=== PATIENT | female | born 1945 | race Caucasian/White ===

== ENCOUNTER 2020-05-04 20:59 | Emergency (ER) | payer MEDICARE, SELFPAY ==
[2020-05-04 21:19] VITALS: BP 155/92; PULSE 67; RESP 16; TEMP 36.2; O2SAT 92; BMI 29.2
--- NOTE | 2020-05-04 21:47 | CTR_ITS ---
PROCEDURE INFORMATION: Exam: CT Head Without Contrast Exam date and time: 05/04/2020 9:55 PM Age: 75 years old Clinical indication: Injury or trauma; Fall; Blunt trauma (contusions or hematomas); Additional info: Fall and hit head TECHNIQUE: Imaging protocol: Computed tomography of the head without contrast. Radiation optimization: All CT scans at this facility use at least one of these dose optimization techniques: automated exposure control; mA and/or kV adjustment per patient size (includes targeted exams where dose is matched to clinical indication); or iterative reconstruction. COMPARISON: No relevant prior studies available. RADIATION DOSE METRICS: Total DLP (mGy-cm): 794.36 FINDINGS: Brain: There is moderate cortical atrophy. Low-density changes in the white matter are consistent with nonspecific small vessel chronic ischemic change. There is no intracranial mass, hemorrhage or edema. Cerebral ventricles: No ventriculomegaly. Bones/joints: Unremarkable. No acute fracture. Paranasal sinuses: Visualized sinuses are unremarkable. No fluid levels. Mastoid air cells: Visualized mastoid air cells are well aerated. Soft tissues: There is scalp hematoma in the left frontal region and also overlying the left orbit. CT/CT head wo con* [id number] IMPRESSION: Scalp hematoma. No acute intracranial finding. Radiation Dose CTDIVOL = (mGy): DLP = 794.36 (mGy-cm)
--- NOTE | 2020-05-04 21:56 | ECG_ITS ---
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 Measurements Intervals Prentice Rate: 63 P: 83 CT: 156 QRS: 64 QRSD: 91 T: 77 QT: 380 QTc: 392 Interpretive Statements SINUS RHYTHM NONSPECIFIC T-WAVE ABNORMALITY No previous ECG available for comparison Electronically Signed On 05-05-2020 13:20:23 CDT by Yaya Vogel M.D. [id number]
--- NOTE | 2020-05-04 21:56 | CTR_ITS ---
PROCEDURE INFORMATION: Exam: CT Maxillofacial Without Contrast Exam date and time: 05/04/2020 10:00 PM Age: 75 years old Clinical indication: Injury or trauma; Fall; Blunt trauma (contusions or hematomas); Orbit/periorbital; Left; Prior surgery; Surgery type: Eyes TECHNIQUE: Imaging protocol: Computed tomography images of the face without contrast. Radiation optimization: All CT scans at this facility use at least one of these dose optimization techniques: automated exposure control; mA and/or kV adjustment per patient size (includes targeted exams where dose is matched to clinical indication); or iterative reconstruction. COMPARISON: No relevant prior studies available. RADIATION DOSE METRICS: Total DLP (mGy-cm): 763.23 FINDINGS: Orbital cavity: Left orbital contents are intact. No abnormality is seen in the left globe. Bones/joints: There is fracture of the left nasal bone which is slightly depressed. There is some deformity of the posterior aspect of the medial wall of the left orbit which may represent minimal medial wall blowout fracture. There is minimally displaced blowout fracture of the inferior wall of the left orbit with some herniation of fat through the orbital defect. Paranasal sinuses: There is partial opacification of some ethmoid air cells on the left. There is some blood or fluid within the left maxillary antrum. Soft tissues: There is some soft tissue swelling and hematoma overlying the left orbit and in the left frontal scalp. Dental: This patient has no teeth. CT/CT facial bones wo con* [id number] IMPRESSION: 1. Left nasal bone fracture. 2. Blowout type fractures of the medial wall and floor of the left orbit. Radiation Dose CTDIVOL = (mGy): DLP = 763.23 (mGy-cm)
--- NOTE | 2020-05-04 22:07 | W.ED.HEATRA ---
HPI - Head Injury General: Chief complaint: Head Injury Stated complaint: FALL - RECENT EYE SURGERY Time Seen by Provider: 05/04/20 21:48 History of Present Illness: HPI Narrative: This patient is a 75-year-old female who presents today after a fall at home. She thinks she passed out and may have fallen down some stairs. She had gone home about an hour before her and when he came home he found her in bed asleep. She does not really remember what happened exactly and she does think she probably passed out. She has bruising and swelling around her left eye. She is very concerned about that because she had a cataract surgery on that eye on April 14. She also had cataract surgery on the right eye on April 28. The left eye is swollen shut but when I open the lid she is able to see out of it. She denies any other injury. She has a small abrasion on her left elbow but denies any pain with range of motion or palpation. She does admit to having 3 beers and a sleeping pill tonight. MD Complaint: head injury and fall Onset (ago): hour(s) (3) Mechanism of Injury: fall Place: home Loss of Consciousness: yes and unwitnessed Location of injury: face Severity: moderate Quality: aching Radiation: none Other Injuries: none Associated symptoms: Deny nausea, neck pain or vomiting Review of Systems General: Reports: 10 or more systems reviewed and unremarkable except in HPI and below Const: Denies: fever(s), chills, fatigue or malaise Eyes: Denies: change in vision ENMT: Denies: odynophagia Card: Denies: chest pain or swelling of feet/ankles Resp: Denies: dyspnea, productive cough or non-productive cough GI: Denies: abdominal pain, nausea or vomiting : Denies: flank pain or difficulty voiding Musc: Denies: neck pain or back pain Skin/Breast: Denies: rash Neuro: Denies: headache(s), numbness in extremities or weakness in extremities Edi/Lymph: Denies: easy bruising or easy bleeding Physical Exam Const: COMMON NORMALS: no acute distress, patient oriented x3, no limitations and alert GENERAL APPEARANCE: cooperative and comfortable HENMT: HEAD & SCALP: normal to inspection FACE & SINUS: normal facial exam Eye: GENERAL EYE: other (Marked swelling around the left eye particular of the upper lid. I was able to open the eye and the eye itself appears normal but with a limited exam. There is abrasions and swelling over the forehead and on the zygomatic arch as well. small amount of dried blood in the nose) Neck/C-Spine: COMMON NORMALS: supple, no meningeal signs and no JVD Chest: COMMONS NORMALS: normal inspection of the chest Resp: COMMON NORMALS: normal respiratory effort, No use of accessory muscles and clear to auscultation bilaterally AUSCULTATION: clear to auscultation bilaterally Cardio: COMMON NORMALS: no JVD, regular rate, regular rhythm and No murmurs present (Cardio) RATE: regular rate RHYTHM: regular rhythm GI: COMMON NORMALS: Normal to inspection, nondistended, normoactive bowel sounds present, Soft to palpation and non-tender INSPECTION: Yes normal to inspection AUSCULTATION: Yes normoactive bowel sounds PALPATION: Yes Soft to palpation Back/Pelvis: COMMON NORMALS: thoracic and lumbar spine normal to inspection Extremity: COMMON NORMALS: normal to inspection NARRATIVE EXTREMITY EXAM: Small abrasion to the left elbow Neuro: COMMON NORMALS: patient oriented x3, moves all extremities, no focal motor deficits and no sensory deficits noted SENSORIUM/ORIENTATION: Yes alert MENINGEAL SIGNS: Yes no meningeal signs Psych: COMMON NORMALS: mental status grossly normal, cooperative and normal affect Skin: COMMON NORMALS: no rashes or lesions noted and turgor normal GENERAL SKIN EXAM: no rashes or lesions noted and turgor normal Course ED course: Patient has marked swelling over the left eye. She is concerned about her recent cataract surgery. Although the exam is limited her eye itself appears to be okay. She does have a orbital blowout fracture and appears to have a little bit of fat entrapped but as far as I can tell does not have any entrapment of orbital muscles. She will call Dr. Acosta in the morning to get follow-up and better exam of her eye. I gave her some pain medicine and strongly counseled her not to take it with alcohol or sleeping pills. Vital Signs: Vital signs: Vital Signs Temperature 97.2 F L 05/04/20 21:19 Pulse Rate 67 05/04/20 21:19 Respiratory Rate 17 05/04/20 23:23 Blood Pressure 155/92 05/04/20 21:19 Pulse Oximetry 98 05/04/20 23:23 MDM - Head Injury Lab Data: Labs: Lab Results 05/04/20 05/04/20 05/04/20 Range/Units 22:18 22:18 22:18 WBC 10.0 (4.0-10.0) 10^3/ uL RBC 4.08 L (4.1-5.3) 10^6/u L Hgb 12.5 (11.5-15.3) g/dL Hct 38.9 (37.0-47.0) % MCV 95.3 (81-99) fL MCH 30.6 (28.0-34.0) pg MCHC 32.1 (30.0-36.0) g/dL RDW 12.6 (12.1-15.1) % Plt Count 221 (130-400) 10^3/c mm MPV 10.6 H (7.4-10.4) fL Neut % (Auto) 79.6 % Lymph % (Auto) 14.2 % Clay % (Auto) 5.1 % Eos % (Auto) 0.3 % Baso % (Auto) 0.4 % Neut # (Auto) 7.95 H (1.8-7.7) 10^3/u L Lymph # (Auto) 1.4 (0.8-4.8) 10^3/u L Clay # (Auto) 0.5 (0.2-0.9) 10^3/u L Eos # (Auto) 0.0 (0.0-0.8) 10^3/u L Baso # (Auto) 0.0 (0.0-0.1) 10^3/u L Nucleated RBC % (a uto) 0 % Nucleated RBCs # 0.0 /100WBC PT 12.10 (12.1-14.9) SECO NDS INR 0.87 (0.8-1.2) Sodium 137 (136-145) mmol/L Potassium 4.3 (3.5-5.1) mmol/L Chloride 104 (98-107) mmol/L Carbon Dioxide 20 L (22-29) mmol/L Anion Gap 17.3 (5-19) BUN 16 (8-23) mg/dL Creatinine 0.8 (0.5-0.9) mg/dL GFR Calculation Not Reportable Glucose 144 H (65-115) mg/dL Calculated Osmolal ity 288 (285-295) mOsm/k g Calcium 8.9 (8.5-10.5) mg/dL Total Bilirubin 0.2 (0.15-1.2) mg/dL AST 22 (0-32) U/L ALT 14 (0-33) U/L Alkaline Phosphata se 51 (35-105) IU/L Total Protein 7.1 (6.6-8.7) g/dL Albumin 4.2 (3.5-5.2) g/dL Globulin 2.9 (1.3-4.6) g/dL Discharge Plan Discharge Patient Disposition: Home Clinical Impression: Orbital fracture Qualifiers: Encounter type: initial encounter Fracture type: closed Qualified Code(s): S02.85XA - Fracture of orbit, unspecified, initial encounter for closed fracture Closed fracture nasal bone Qualifiers: Encounter type: initial encounter Qualified Code(s): S02.2XXA - Fracture of nasal bones, initial encounter for closed fracture Condition: Stable Prescriptions: New cephalexin 500 mg capsule 500 mg PO TID 7 Days Qty: 21 RF: 0 oxycodone 5 mg tablet 5 mg PO Q6H PRN (Reason: pain) Qty: 10 RF: 0 Discharge Orders: Discharge Order (Routine); Ordered 05/04/20 Ordered By: Brisa Lopez Referrals: Gunner Acosta MD [Physician] - 1-3 days (Recheck recent cataract surgery, left orbital fracture) Vernon Yeh MD [Family Provider] - Discharge Diet: Usual diet Discharge Activity: Limit activity as instructed Patient Instructions: Facial Fracture (ED) Activity Restrictions/Additional Instructions: Rest. Be cautious about mixing pain medicine, sleeping pills and alcohol. Return to the ER if any new or worse symptoms. Call Dr. Acosta in the morning to arrange for close follow-up. Discharge Date/Time: 05/04/20 23:24 Coding Level of Care Code ED Inventory Management Specialist for Chg Fwd Exam Comprehensive
[2020-05-04 22:27] LABS: Basophils % 0.4 %; Eosinophils % 0.3 %; Hematocrit 38.9 % (37.0-47.0); Hemoglobin 12.5 g/dL (11.5-15.3); Lymphocytes # 1.4 10^3/uL (0.8-4.8); Lymphocytes % 14.2 %; Mean Corpuscular HGB Conc 32.1 g/dL (30.0-36.0); Mean Corpuscular Hemoglobin 30.6 pg (28.0-34.0); Mean Corpuscular Volume 95.3 fL (81-99); Mean Platelet Volume 10.6 fL (7.4-10.4); Monocytes # 0.5 10^3/uL (0.2-0.9); Monocytes % 5.1 %; Neutrophils # 7.95 10^3/uL (1.8-7.7); Neutrophils % 79.6 %; Nucleated Red Blood Cells % 0 %; Platelet Count 221 10^3/cmm (130-400); Red Blood Count 4.08 10^6/uL (4.1-5.3); Red Cell Distribution Width 12.6 % (12.1-15.1)
[2020-05-04 22:44] LABS: INR 0.87 (0.8-1.2)
[2020-05-04 22:48] LABS: Alanine Aminotransferase 14 U/L (0-33); Albumin Level 4.2 g/dL (3.5-5.2); Alkaline Phosphatase 51 IU/L (35-105); Anion Gap 17.3 (5-19); Aspartate Amino Transferase 22 U/L (0-32); Blood Urea Nitrogen 16 mg/dL (8-23); Calcium 8.9 mg/dL (8.5-10.5); Carbon Dioxide 20 mmol/L (22-29); Chloride 104 mmol/L (98-107); Globulin 2.9 g/dL (1.3-4.6); Glucose 144 mg/dL (65-115); Osmolality Calculated 288 mOsm/kg (285-295); Potassium 4.3 mmol/L (3.5-5.1); Sodium 137 mmol/L (136-145); Total Bilirubin 0.2 mg/dL (0.15-1.2); Total Protein 7.1 g/dL (6.6-8.7)
[2020-05-04 22:49] VITALS: RESP 16; O2SAT 97
[2020-05-04] MEDS: morphine 4 mg/mL SDV 1 mL IVP (22:49)
[2020-05-04] MEDS: ondansetron 2 mg/ML SDV 2 mL 4 MG IVP (22:50)
[2020-05-04 23:23] VITALS: RESP 17; O2SAT 98
== END 2020-05-04 23:24 | disposition home or self-care (01) ==
PROVIDERS: Emergency Provider Emergency Medicine; Family Provider Family Medicine
DX: S02.85XA Fracture of orbit, unspecified, initial encounter for closed fracture (principal); S02.2XXA Fracture of nasal bones, initial encounter for closed fracture; W19.XXXA Unspecified fall, initial encounter
CPT/HCPCS: 12345; 70450; 70486; 80053; 85025; 85610; 93005; 96374; 96375; 99283; J2270; J2405

== ENCOUNTER 2020-12-02 07:14 | Outpatient (RCR) | payer MEDICARE, SELFPAY | END 2020-12-21 23:59 | disposition home or self-care (01) | LOC: SPT 07:14 | PROVIDERS: PCP Family Medicine; Referring Provider Family Medicine; Visit Provider Family Medicine | DX: M25.552 Pain in left hip (principal) | CPT/HCPCS: 97110; 97161 ==

== ENCOUNTER 2020-12-22 06:00 | Outpatient (RCR) | payer MEDICARE, SELFPAY | END 2021-01-20 23:59 | disposition home or self-care (01) | LOC: SPT 06:00 | PROVIDERS: PCP Family Medicine; Referring Provider Family Medicine; Visit Provider Family Medicine | DX: M25.552 Pain in left hip (principal) | CPT/HCPCS: 97110 ==

== ENCOUNTER 2021-01-21 06:00 | Outpatient (RCR) | payer MEDICARE, SELFPAY | END 2021-02-20 23:59 | disposition home or self-care (01) | LOC: SPT 06:00 | PROVIDERS: PCP Family Medicine; Referring Provider Family Medicine; Visit Provider Family Medicine | DX: M25.552 Pain in left hip (principal) | CPT/HCPCS: 97110 ==

== ENCOUNTER → 2022-11-10 09:40 | Outpatient (BNVA) | payer MEDICARE, SELFPAY | PROVIDERS: PCP Family Medicine; Visit Provider Family Medicine | DX: R68.83 Chills (without fever) (principal); F10.20 Alcohol dependence, uncomplicated | CPT/HCPCS: 80053; 82607; 83735; 84443; 85025 ==

== ENCOUNTER → 2023-07-19 09:33 | Outpatient (BNVA) | payer MEDICARE, SELFPAY | PROVIDERS: PCP Family Medicine; Visit Provider Clinical Nurse Specialist Adult Health | DX: E03.9 Hypothyroidism, unspecified (principal); L30.9 Dermatitis, unspecified; R21 Rash and other nonspecific skin eruption | CPT/HCPCS: 80053; 82306; 84443; 85025 ==

== ENCOUNTER 2023-11-03 08:54 | Outpatient (CLI) | payer MEDICARE, SELFPAY ==
--- NOTE | 2023-11-03 09:30 | MM_ITS ---
WS: [id number] Bilateral screening 3D tomosynthesis digital mammogram, 11/03/2023 Clinical Data: screening Comparison: 07/26/2011, 06/24/2010, 04/16/2009, 03/04/2008, 12/06/2006, 11/22/2005. Findings: The breast parenchymal pattern shows fibroglandular tissue. No spiculated masses or clustered calcifi cations are seen. There are no secondary signs of carcinoma. The nodule in the central portion of the right breast has decreased in size and now measures 0.8 cm and has decreased density. Based on previ ous reports this nodule probably represents a resolving hematoma. There are vascular calcifications i n the right breast. The left breast is normal. Impression: 1. Negative bilateral mammogram with decrease in size and density of right breast nodule.. 2. Recommend annual screening mammograms. MM/[place] [id number] BIRADS: 2-Benign FOLLOW UP: 1 Year Follow-up The CAD aircraft delivery checker was used.
== END 2023-11-03 08:55 | disposition home or self-care (01) ==
LOC: RAD 08:55
PROVIDERS: PCP Family Medicine; Visit Provider Family Medicine
DX: Z12.31 Encounter for screening mammogram for malignant neoplasm of breast (principal)
CPT/HCPCS: 77063; 77067

== ENCOUNTER 2024-02-16 06:35 | Emergency (ER) | payer MEDICARE, SELFPAY ==
[2024-02-16 06:36] VITALS: BP 188/102; PULSE 62; RESP 18; TEMP 36.7; O2SAT 98; BMI 21.2
--- NOTE | 2024-02-16 06:49 | ED_ITS ---
HPI - Eye Problem General: Chief complaint: Eye Problems Stated complaint: Right eye trouble Time Seen by Provider: 02/16/24 06:39 History of Present Illness: 78-year-old female presents emergency ro om complaining of intermittent visual disturbance in her right eye. She had similar symptoms yesterday discharge to go to philippe oLwe's office he was not available and she was referred to urgent care urgent care referred her to Dr. Acosta's office. She was seen at Dr. Acosta's office there was no significant finding today per her report. She states she was intermittently having blurring in her vision and what she described as black dots. She states when she woke up this morning she had very restricted almost tunnellike vision. This subsequently resolved she describes it now as patchy blurry vision throughout her field of vision. She has no floaters she has no eye pain. No trauma to the eye recently. No redness or drainage from the eye. Her blood pressure is noted to be elevated today. He is also complaining of some posterior right-sided neck pain. No recent falls or trauma. No other neurologic deficits are noted on exam see below. Note that her blood pressure is elevated today. Associated symptoms: Denies fever(s) or headache(s) Review of Systems Const: Denies: fever(s) or chills Card: Denies: chest pain Resp: Denies: dyspnea GI: Denies: abdominal pain : Denies: dysuria, urinary frequency or urinary urgency Musc: Denies: back pain Skin/Breast: Denies: rash Neuro: Denies: headache(s), numbness in extremities or weakness in extremities PFS ED PFSH: Medical History Insomnia Hypothyroidism (acquired) Alcoholism History of gastric ulcer Surgical History Status post colonoscopy History of hysterectomy Social History Smoking and tobacco/nicotine status: unknown if used tobacco/nicotine Physical Exam Const: COMMON NORMALS: no acute distress GENERAL APPEARANCE: cooperative and comfortable ORIENTATION/CONSCIOUSNESS: Yes awake, Yes oriented to person, Yes oriented to place and Yes oriented to time HENMT: COMMON NORMALS: normocephalic, atraumatic and hearing grossly normal bilaterally HEAD & SCALP: normocephalic and atraumatic Eye: OTHER: Pupils equal reactive to light and accommodation. Funduscopic exam limited but appears normal vessels crisp no evidence of AV nicking and no evidence of retinal hemorrhage. Funduscopic exam was nondilated and somewhat limited. Resp: COMMON NORMALS: normal respiratory effort, No retractions, No use of accessory muscles and clear to auscultation bilaterally AUSCULTATION: clear to auscultation bilaterally Cardio: COMMON NORMALS: regular rate, regular rhythm and No murmurs present (Cardio) RATE: regular rate RHYTHM: regular rhythm Extremity: COMMON NORMALS: normal to inspection, capillary refill normal, no clubbing, cyanosis or edema, no calf tenderness and no pedal edema Neuro: SENSORIUM/ORIENTATION: Yes oriented to person, Yes oriented to place and Yes oriented to time OTHER: No ataxia no facial asymmetry no unilateral weakness. Skin: COMMON NORMALS: no rashes or lesions noted GENERAL SKIN EXAM: no rashes or lesions noted Course Vital Signs: Vital signs: Vital Signs Temperature 98.1 F 02/16/24 06:36 Pulse Rate 62 02/16/24 06:36 Respiratory Rate 18 02/16/24 06:36 Blood Pressure 188/102 02/16/24 06:36 Pulse Oximetry 98 02/16/24 06:36 Oxygen Delivery Me thod Room Air 02/16/24 06:36 MDM - Eye Problem Medical Decision Making No acute finding at this time. Initial blood pressure 188/102 repeat 158/82. Do not believe this is related to her blood pressure there is no sign of acute neurologic event. Based on her presentation of symptoms and no evidence of trauma no evidence of acute glaucoma. There is no redness or erythema to the eye no report of foreign body sensation. Given her normal exam and ophthalmology yesterday did not do a dilated eye exam. I think at this point probably better to send her back to ophthalmology for more complete exam and reevaluation. Given the transient intermittent nature of this do not believe she has a vascular occlusion. Her vision is blurry of the portions but is otherwise resolved. Medical Records I reviewed the patient's medical records. No radiology studies performed this visit Discharge Plan Discharge Patient Disposition: Home Clinical Impression: Transient vision disturbance, right Condition: Stable Prescriptions: No Action mupirocin 2 % ointment 1 applic topical BID Qty: 15 1RF Rx Instructions: for 7 days triamcinolone acetonide 0.1 % cream 1 applic topical DAILY Qty: 30 0RF Rx Instructions: use daily for up to 14 days levothyroxine 50 mcg capsule 50 mcg PO DAILY Qty: 30 11RF Rx Instructions: 30 mins prior to food or meds triamcinolone acetonide 0.5 % cream 1 applic topical BID Qty: 30 2RF propranolol 10 mg tablet 10 mg PO BID Qty: 60 11RF hydroxyzine pamoate [Vistaril] 25 mg capsule 25 mg PO BID Qty: 60 11RF omeprazole 20 mg capsule,delayed release(DR/EC) See Rx Instructions .ROUTE .COMPLEX Qty: 60 11RF Dose Instruction: TAKE 1 CAPSULE BY MOUTH TWO TIMES DAILY Rx Instructions: TAKE 1 CAPSULE BY MOUTH TWO TIMES DAILY zolpidem 10 mg tablet 10 mg PO BEDTIME PRN (Reason: insomnia) Qty: 30 5RF Discharge Orders: Discharge ED (Routine); Ordered 02/16/24 Ordered By: Roque Collier Referrals: Vernon Yeh MD [Primary Care Provider] - Discharge Diet: Usual diet Discharge Activity: Resume usual activity Patient Instructions: Opioid Safety, Pain Management Activity Restrictions/Additional Instructions: Thank you for choosing [facility] for your healthcare needs today. It is very important that you follow up as instructed or that you return to the Emerg ency Department should you have concerns or if your condition changes or worsens in any way. Recommend that you contact Dr. Acosta's office this morning and have them reexamine. Time you are examined in the emergency room there is no acute condition noted. It would be best to have further exam by ophthalmology this morning. Coding Level of Care Code ED Film Masker for Jeremiah Mckee
== END 2024-02-16 07:16 | disposition home or self-care (01) ==
PROVIDERS: Emergency Provider Family Medicine; PCP Family Medicine
DX: H53.8 Other visual disturbances (principal)
CPT/HCPCS: 99281

== ENCOUNTER 2024-02-16 09:41 | Emergency (ER) | payer MEDICARE, SELFPAY ==
--- NOTE | 2024-02-16 09:53 | W.ED.EYEPROB ---
HPI - Eye Problem General: Stated complaint: right eye trouble Time Seen by Provider: 02/16/24 09:43 PFSH ED PFSH: Medical History Insomnia Hypothyroidism (acquired) Alcoholism History of gastric ulcer Surgical History Status post colonoscopy History of hysterectomy Social History Smoking and tobacco/nicotine status: unknown if used tobacco/nicotine Discharge Plan Discharge Condition: Stable Prescriptions: No Action mupirocin 2 % ointment 1 applic topical BID Qty: 15 1RF Rx Instructions: for 7 days triamcinolone acetonide 0.1 % cream 1 applic topical DAILY Qty: 30 0RF Rx Instructions: use daily for up to 14 days levothyroxine 50 mcg capsule 50 mcg PO DAILY Qty: 30 11RF Rx Instructions: 30 mins prior to food or meds triamcinolone acetonide 0.5 % cream 1 applic topical BID Qty: 30 2RF propranolol 10 mg tablet 10 mg PO BID Qty: 60 11RF hydroxyzine pamoate [Vistaril] 25 mg capsule 25 mg PO BID Qty: 60 11RF omeprazole 20 mg capsule,delayed release(DR/EC) See Rx Instructions .ROUTE .COMPLEX Qty: 60 11RF Dose Instruction: TAKE 1 CAPSULE BY MOUTH TWO TIMES DAILY Rx Instructions: TAKE 1 CAPSULE BY MOUTH TWO TIMES DAILY zolpidem 10 mg tablet 10 mg PO BEDTIME PRN (Reason: insomnia) Qty: 30 5RF Referrals: Vernon Yeh MD [Primary Care Provider] - Coding Level of Care Code ED Overhead Crane Operator for Israg Rafi
--- NOTE | 2024-02-16 09:57 | CT_ITS ---
WS: [id number] CT ANGIOGRAM CEREBRAL AND CAROTID ARTERIES HISTORY: vision changes TECHNIQUE: CT angiogram is performed of the carotid and cerebral arteries. During arterial injection imaging is obtained from the skull vertex to the aortic arch in 1.25 mm imaging. Coronal and sagittal reformats are submitted. Additional multi planar reformats of the carotid and cerebral arteries are submitted, MIP imaging also reviewed. NASCET criteria utilized. [facility] CT [facility] at least one of these dose optimization techniques: automated exposure control; mA and/or kV adjust ment per patient size (includes targeted exams where dose is matched to clinical indication); or iter ative reconstruction. CONTRAST: Omnipaque 350; 100 mL IV. DLP: 957.79 mGy.cm COMPARISON: CT head 05/04/[address] of the brain has first been performed. There is mild bilateral volume loss. No hemorrh age or area of acute edema. There are a few small lacunar infarcts and moderate small vessel ischemic disease. Mild volume loss in the cerebellum. Carotid Angiogram: Right carotid: Common carotid artery: Arises normally from the innominate artery. No significant plaque or stenosis. Internal carotid artery: Small amount of plaque at the bifurcation. No high-grade stenosis. External carotid artery: Patent. Left carotid: Common carotid artery: Arises at the base of the innominate. No stenosis. Mild plaque. Internal carotid artery: Mild plaque at the bifurcation. No high-grade stenosis. External carotid artery: Patent. Right vertebral artery: Unremarkable. Left vertebral artery: Unremarkable. Arises normally from the subclavian artery. Subclavian arteries: No stenosis or significant abnormality. Upper thorax: Normal. Thyroid gland: Normal. Osseous structures: Slight retrolisthesis C4. CEREBRAL ANGIOGRAM: Intracranial vertebral arteries: Normal with no significant atherosclerosis. Basilar artery: No significant stenosis or occlusion. No aneurysm. Intracranial Internal carotid arteries: Moderate plaques in the cavernous carotid arteries with steno sis approaching 50%. No occlusions. Middle cerebral arteries: Normal. Anterior cerebral arteries and ACOM: Normal. Posterior cerebral arteries and PCOM's: Normal. Dural venous sinuses are normally enhancing. Mastoid air cells: Normal. Paranasal sinuses: Normal. Calvarium: Normal. CT/CT angio headneck* [id number] IMPRESSION: 1. No high-grade cervical carotid artery stenosis. Mild plaque in the cervical carotid arteries. 2. Moderate plaque in the cavernous carotid artery with stenosis near 50%, shaun ateral. No occlusion. 3. No occlusions or high-grade stenosis or aneurysm in the [place]. 4. No intracranial hemorrhage or edema. Mild cerebral atrophy with small vesse l ischemic disease.
[2024-02-16 09:58] VITALS: BP 165/109; PULSE 50; RESP 17; TEMP 36.8; O2SAT 98; BMI 22.6
[2024-02-16 10:17] LABS: Basophils % 0.4 %; Eosinophils # 0.1 10^3/uL (0.0-0.8); Eosinophils % 1.2 %; Hematocrit 39.6 % (36-47); Lymphocytes # 2.1 10^3/uL (0.8-4.8); Lymphocytes % 31.4 %; Mean Corpuscular HGB Conc 32.3 g/dL (30-55); Mean Corpuscular Hemoglobin 29.3 pg (27-33); Mean Corpuscular Volume 90.6 fl (85-98); Monocytes # 0.5 10^3/uL (0.2-0.9); Monocytes % 6.6 %; Neutrophils # 4.09 10^3/uL (1.8-7.7); Neutrophils % 60.1 %; Nucleated Red Blood Cells % 0 %; Platelet Count 209 10^3/cmm (157-399); Red Blood Count 4.37 10^6/uL (3.85-5.65); Red Cell Distribution Width 14.3 % (12.1-15.1); White Blood Count 6.81 10^3/uL (3.29-11.43)
[2024-02-16 10:28] LABS: Erythrocyte Sedimentation Rate 3 mm/hr (0-15)
[2024-02-16 10:36] LABS: Alanine Aminotransferase 13 U/L (0-33); Albumin Level 4.3 g/dL (3.5-5.2); Alkaline Phosphatase 55 U/L (35-105); Anion Gap 16.1 (5-19); Aspartate Amino Transferase 18 U/L (0-32); Blood Urea Nitrogen 12 mg/dL (8-23); Calcium 9.3 mg/dL (8.5-10.5); Carbon Dioxide 24 mmol/L (22-29); Chloride 104 mmol/L (98-107); Creatinine Clr Calc Pharmacy 49.6381; Globulin 3.3 g/dL (1.3-4.6); Glucose 118 mg/dL (65-115); Osmolality Calculated 291 mOsm/kg (285-295); Potassium 4.1 mmol/L (3.5-5.1); Sodium 140 mmol/L (136-145); Total Bilirubin 0.6 mg/dL (0.15-1.2); Total Protein 7.6 g/dL (6.6-8.7)
[2024-02-16] MEDS: iohexol 350 mg/mL 500 mL Btl (per mL) IV (10:54)
--- NOTE | 2024-02-16 10:57 | ED_ITS ---
HPI - Eye Problem 2 General: Chief complaint: Eye Problems Stated complaint: right eye trouble Time Seen by Provider: 02/16/24 09:43 History of Present Illness: 78-year-old female returns emergency crescencio m and seen earlier this morning she was 24 hours and from complaint of vision changes she had seen ophthalmology yesterday morning. We referred her back to ophthalmology she did not have accelerated blood pressure at the time. She had states her vision had dimmed out when she woke up this morning but had improved and was back to what it was like yesterday with areas that were blurry but generally she could see in that eye. When she went to the [employer] hand there is stating that she has loss of vision again she has no other focal neurologic deficits when she represents nor did she earlier in the day. Associated symptoms: Denies fever(s) or headache(s) Review of Systems 2 Const: Denies: fever(s) or chills Card: Denies: chest pain Resp: Denies: dyspnea GI: Denies: abdominal pain : Denies: dysuria, urinary frequency or urinary urgency Musc: Denies: back pain Skin/Breast: Denies: rash Neuro: Denies: headache(s), numbness in extremities or weakness in extremities PFSH ED 2 PFSH: Medical History Insomnia Hypothyroidism (acquired) Alcoholism History of gastric ulcer Surgical History Status post colonoscopy History of hysterectomy Social History Smoking and tobacco/nicotine status: unknown if used tobacco/nicotine Physical Exam 2 Const: COMMON NORMALS: no acute distress GENERAL APPEARANCE: cooperative and comfortable ORIENTATION/CONSCIOUSNESS: Yes awake, Yes oriented to person, Yes oriented to place and Yes oriented to time HENMT: COMMON NORMALS: normocephalic, atraumatic and hearing grossly normal bilaterally HEAD & SCALP: normocephalic and atraumatic Eye: OTHER: Pupils equal reactive to light and accommodation. Patient has irregular visual field disturbance. She describes it differently than previous visit. Resp: COMMON NORMALS: normal respiratory effort, No retractions, No use of accessory muscles and clear to auscultation bilaterally AUSCULTATION: clear to auscultation bilaterally Cardio: COMMON NORMALS: regular rate, regular rhythm and No murmurs present (Cardio) RATE: regular rate RHYTHM: regular rhythm Extremity: COMMON NORMALS: normal to inspection, capillary refill normal, no clubbing, cyanosis or edema, no calf tenderness and no pedal edema Neuro: SENSORIUM/ORIENTATION: Yes oriented to person, Yes oriented to place and Yes oriented to time OTHER: No ataxia no facial asymmetry no unilateral weakness. Skin: COMMON NORMALS: no rashes or lesions noted GENERAL SKIN EXAM: no rashes or lesions noted Course 2 Vital Signs: Vital signs: Vital Signs Temperature 98.2 F 02/16/24 09:58 Pulse Rate 50 L 02/16/24 09:58 Respiratory Rate 17 02/16/24 09:58 Blood Pressure 165/109 02/16/24 09:58 Pulse Oximetry 98 02/16/24 09:58 MDM - Eye Problem Medical Decision Making Symptoms onset greater than 30 hours ago. Possible this is a retinal artery branch occlusion she was evaluated yesterday at ophthalmology who did not think to do fluid as she likely timeframe. She was sent back here because of concerns for other neurologic's events but there is nothing immediately apparent she has no focal neurologic deficits at this time. CTA of the head and neck was done did not show any occlusive disease. Will discharge patient home on clopidogrel and atorvastatin had also recommended aspirin but she listed as an allergy giving headaches. Follow-up with her primary care doctor. She does not have any temporal artery tenderness her sed rate and her CRP are negative. Lab Data I reviewed the patient's lab results. 02/16/24 10:11 02/16/24 10:11 Radiology Impressions Head/Neck CTA 02/16/24 09:57 IMPRESSION: 1. No high-grade cervical carotid artery stenosis. Mild plaque in the cervical carotid arteries. 2. Moderate plaque in the cavernous carotid artery with stenosis near 50%, bilateral. No occlusion. 3. No occlusions or high-grade stenosis or aneurysm in the [place]. 4. No intracranial hemorrhage or edema. Mild cerebral atrophy with small vessel ischemic disease. Laboratory Results WBC 6.81 10^3/uL (3.29-11.43) 02/16/24 10:11 RBC 4.37 10^6/uL (3.85-5.65) 02/16/24 10:11 Hgb 12.80 g/dL (11.27-16.99) 02/16/24 10:11 Hct 39.6 % (36-47) 02/16/24 10:11 MCV 90.6 fl (85-98) 02/16/24 10:11 MCH 29.3 pg (27-33) 02/16/24 10:11 MCHC 32.3 g/dL (30-55) 02/16/24 10:11 RDW 14.3 % (12.1-15.1) 02/16/24 10:11 Plt Count 209 10^3/cmm (157-399) 02/16/24 10:11 MPV 10.0 fL (7.4-10.4) 02/16/24 10:11 Neut % (Auto) 60.1 % 02/16/24 10:11 Lymph % (Auto) 31.4 % 02/16/24 10:11 [place] % (Auto) 6.6 % 02/16/24 10:11 Eos % (Auto) 1.2 % 02/16/24 10:11 Baso % (Auto) 0.4 % 02/16/24 10:11 Neut # (Auto) 4.09 10^3/uL (1.8-7.7) 02/16/24 10:11 Lymph # (Auto) 2.1 10^3/uL (0.8-4.8) 02/16/24 10:11 [place] # (Auto) 0.5 10^3/uL (0.2-0.9) 02/16/24 10:11 Eos # (Auto) 0.1 10^3/uL (0.0-0.8) 02/16/24 10:11 Baso # (Auto) 0.0 10^3/uL (0.0-0.1) 02/16/24 10:11 Nucleated RBC % (auto) 0 % 02/16/24 10:11 Nucleated RBCs # 0.0 /100WBC 02/16/24 10:11 ESR 3 mm/hr (0-15) 02/16/24 10:11 Sodium 140 mmol/L (136-145) 02/16/24 10:11 Potassium 4.1 mmol/L (3.5-5.1) 02/16/24 10:11 Chloride 104 mmol/L (98-107) 02/16/24 10:11 Carbon Dioxide 24 mmol/L (22-29) 02/16/24 10:11 Anion Gap 16.1 (5-19) 02/16/24 10:11 BUN 12 mg/dL (8-23) 02/16/24 10:11 Creatinine 0.8 mg/dL (0.5-0.9) 02/16/24 10:11 GFR Calculation Not Reportable 02/16/24 10:11 Glucose 118 mg/dL (65-115) H 02/16/24 10:11 Calculated Osmolality 291 mOsm/kg (285-295) 02/16/24 10:11 Calcium 9.3 mg/dL (8.5-10.5) 02/16/24 10:11 Total Bilirubin 0.6 mg/dL (0.15-1.2) 02/16/24 10:11 AST 18 U/L (0-32) 02/16/24 10:11 ALT 13 U/L (0-33) 02/16/24 10:11 Alkaline Phosphatase 55 U/L (35-105) 02/16/24 10:11 C-Reactive Protein 3.0 mg/L (0.0-4.9) 02/16/24 10:11 Total Protein 7.6 g/dL (6.6-8.7) 02/16/24 10:11 Albumin 4.3 g/dL (3.5-5.2) 02/16/24 10:11 Globulin 3.3 g/dL (1.3-4.6) 02/16/24 10:11 All radiology interpretation(s) finalized by discharge Discharge Plan Discharge Patient Disposition: Home Clinical Impression: Loss of vision Condition: Stable Prescriptions: New clopidogrel 75 mg tablet 75 mg PO DAILY Qty: 30 0RF atorvastatin 40 mg tablet 40 mg PO DAILY Qty: 30 0RF No Action propranolol 10 mg tablet 10 mg PO BID Qty: 60 11RF hydroxyzine pamoate [Vistaril] 25 mg capsule 25 mg PO BID Qty: 60 11RF zolpidem 10 mg tablet 10 mg PO BEDTIME PRN (Reason: insomnia) Qty: 30 5RF triamcinolone acetonide 0.5 % cream 1 applic topical BID PRN (Reason: Skin Irritation) omeprazole 20 mg capsule,delayed release(DR/EC) 20 mg PO BID levothyroxine 50 mcg capsule 50 mcg PO QAM Rx Instructions: 30 mins prior to food or meds Discharge Orders: Discharge ED (Routine); Ordered 02/16/24 Ordered By: Roque Collier Referrals: Vernon Yeh MD [Primary Care Provider] - Discharge Activity: Resume usual activity Patient Instructions: Opioid Safety, Pain Management Activity Restrictions/Additional Instructions: Thank you for choosing [facility] for your healthcare needs today. It is very important that you follow up as instructed or that you return to the Emergency Department should you have concerns or if your condition changes or worsens in any way. You are seen today with complaints of vision trouble. There is no definitive finding on the testing recommend he continue to follow-up with ophthalmology. Recommend starting clopidogrel once daily and atorvastatin 40 mg once daily. If you are able you should also take a baby aspirin daily although this is listed as having an allergy side effect of headache. Follow-up with your primary care doctor as well. Coding Level of Care Code ED Tobacco Conditioner for Jeremiah Mckee
== END 2024-02-16 13:07 | disposition home or self-care (01) ==
PROVIDERS: Emergency Provider Family Medicine; PCP Family Medicine
DX: H54.7 Unspecified visual loss (principal)
CPT/HCPCS: 70496; 70498; 80053; 85025; 85651; 86140; 99285; Q9967

== ENCOUNTER 2024-02-20 06:00 | Outpatient (CLI) | payer MEDICARE, SELFPAY | END 2024-02-20 06:01 | disposition home or self-care (01) | LOC: RAD 04-05 07:20 | PROVIDERS: PCP Family Medicine; Visit Provider Family Medicine | DX: H54.7 Unspecified visual loss (principal) | CPT/HCPCS: 86618; 86666; 86757 ==

== ENCOUNTER 2024-03-28 06:25 | Outpatient (CLI) | payer MEDICARE, SELFPAY ==
--- NOTE | 2024-03-28 06:30 | USCV_ITS ---
Oly Luna (Carolyn) Age: 79 Gender: F : 1945 Exam Date: 03/28/2024 06:35 Ordering Phys: Vernon Yeh MD Technologist: [place] [facility] [place]: tia BP: 132 / 75 HR: 45 Rhythm: Sinus Technical Quality: Adequate MEASUREMENTS (Male / Female) Normal Values 2D ECHO LV Diastolic Diameter PLAX 3.8 cm 4.2 - 5.9 / 3.9 - 5.3 cm IVS Diastolic Thickness 1.1 cm 0.6 - 1.0 / 0.6 - 0.9 cm IVS Systolic Thickness 2.0 cm LVPW Diastolic Thickness 1.2 cm 0.6 - 1.0 / 0.6 - 0.9 cm LVPW Systolic Thickness 1.3 cm LVOT Diameter 2.0 cm LV Ejection Fraction 2D Teich 75.0 % LV Ejection Fraction MOD 4C 63.5 % LV Ejection Fraction MOD 2C 74.6 % LV Ejection Fraction 2C AL 73.8 % LA Diameter 3.4 cm RA Systolic Volume 4C AL 23.8 ml RA Systolic Volume 4C MOD 23.8 ml Aorta at Sinotubular Diameter 2.9 cm IVC Diameter 1.7 cm M-MODE LA Ao Ratio MM 1.0 AV Cusp Separation MM 2.3 cm DOPPLER AV Peak Velocity 154.0 cm/s LVOT Peak Velocity 86.0 cm/s AV Area Cont Eq vti 2.0 cm squared AV Area Cont Eq pk 1.8 cm squared MV Area PHT 3.3 cm squared Mitral E to A Ratio 1.6 TR Peak Velocity 202.0 cm/s TR Peak Gradient 16.3 mmHg TV Peak E Velocity 97.0 cm/s Right Atrial Pressure 3.0 mmHg Pulmonary Artery Systolic Pressu 19.3 mmHg PV Peak Velocity 82.0 cm/s FINDINGS Left Ventricle Normal left ventricular size and systolic function, EF 74%.mild left ventricular hypertrophy. No regional wall motion abnormalities. Right Ventricle The right ventricle is normal in size and function. Right Atrium The right atrium is normal in size. Left Atrium The left atrium is normal in size. Mitral Valve Trace mitral valve regurgitation. Aortic Valve No gross abnormalities noted Tricuspid Valve No gross abnormalities noted Pulmonic Valve No gross abnormalities noted Pericardium Normal pericardium without effusion. Aorta Normal ascending aorta dimension. IVC The inferior vena cava appears normal. CONCLUSIONS Normal left ventricular size and systolic function, EF 74%.mild left ventricular hypertrophy. No regional wall motion abnormalities. Trace mitral valve regurgitation. There is no pericardial effusion. There are no intracardiac masses. No similar previous studies are available for comparison Dr Aurora Purcell MD [facility] (Electronically Signed) Final Date: 28 March 2024 09:07 S
== END 2024-03-28 06:26 | disposition home or self-care (01) ==
PROVIDERS: PCP Family Medicine; Visit Provider Family Medicine
DX: G45.9 Transient cerebral ischemic attack, unspecified (principal); I74.9 Embolism and thrombosis of unspecified artery
CPT/HCPCS: 93306

== ENCOUNTER 2024-09-16 11:51 | Emergency (ER) | payer MEDICARE, SELFPAY ==
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
[2024-09-16 11:58] VITALS: BP 174/79; PULSE 44; RESP 20; TEMP 37.2; O2SAT 99; BMI 21.9
[2024-09-16 12:27] VITALS: BP 174/79; PULSE 46; RESP 15; O2SAT 96
[2024-09-16] MEDS: ketorolac 30 mg/mL INJ 15 MG IVP (12:51)
[2024-09-16 12:52] LABS: Bilirubin Urine Negative (Negative); Blood Urine Non-haemolysed trace (Negative); Glucose Urine UA Negative (Normal); Ketones Urine Negative (Negative); Leukocyte Esterase Urine Negative (Negative); Nitrate Urine Negative (Negative); Protein Urine Trace (Negative); Specific Gravity, Urine 1.015 (1.005-1.030); Urine Appearance Clear (CLEAR); Urine Color Yellow (Yellow); Urobilinogen Urine 0.2 mg/dL (Negative)
--- NOTE | 2024-09-16 12:54 | PC.NURSE ---
PATIENT CONTINUES TO YELL FROM ROOM. PATIENT IS UPSET SHE HAS BEEN HERE FOR 1 HOUR AND NO ONE IS GIVING HER PAIN MEDICATION OR WATER. NURSE EXPLAINED TRIAGE AND CARE OF OTHER PATIENTS IN THE ER. PATIENT STATES SHE WANTS C-COLLAR REMOVED. NURSE EDUCATED PATIENT THAT CT READ IS NOT COMPLETE SO FOOD AND DRINK FOR C-SPINE IS NOT CLEAR. PATIENT CONTINUED TO ARGUE WITH STAFF.
[2024-09-16 13:15] VITALS: BP 157/70; PULSE 51; RESP 12; O2SAT 95
[2024-09-16 13:18] LABS: Basophils # 0.1 10^3/uL (0.0-0.1); Basophils % 0.4 %; Eosinophils % 0.3 %; Hematocrit 38.8 % (36-47); Lymphocytes # 1.7 10^3/uL (0.8-4.8); Lymphocytes % 13.9 %; Mean Corpuscular HGB Conc 33.5 g/dL (30-55); Mean Corpuscular Hemoglobin 30.8 pg (27-33); Mean Corpuscular Volume 91.9 fl (85-98); Mean Platelet Volume 10.7 fL (7.4-10.4); Monocytes # 0.8 10^3/uL (0.2-0.9); Monocytes % 6.7 %; Neutrophils # 9.52 10^3/uL (1.8-7.7); Neutrophils % 78.1 %; Nucleated Red Blood Cells % 0 %; Platelet Count 213 10^3/cmm (157-399); Red Blood Count 4.22 10^6/uL (3.85-5.65); Red Cell Distribution Width 12.7 % (12.1-15.1)
[2024-09-16 13:27] LABS: Add Urine Microscopic? YES
[2024-09-16 13:28] LABS: Add Urine Culture? No; RBC Urine RARE /hpf (0-2); Squamous Epithelial Cell Urine 0-4 /hpf (0-5); WBC Urine 0-4 /hpf (0-5)
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
[2024-09-16 13:41] LABS: Alanine Aminotransferase 39 U/L (0-33); Albumin Level 3.9 g/dL (3.5-5.2); Alkaline Phosphatase 56 U/L (35-105); Aspartate Amino Transferase 50 U/L (0-32); Blood Urea Nitrogen 12 mg/dL (8-23); Calcium 8.9 mg/dL (8.5-10.5); Carbon Dioxide 22 mmol/L (22-29); Chloride 107 mmol/L (98-107); Creatinine Clr Calc Pharmacy 48.1879; Globulin 2.6 g/dL (1.3-4.6); Glucose 151 mg/dL (65-115); Osmolality Calculated 293 mOsm/kg (285-295); Sodium 140 mmol/L (136-145); Total Bilirubin 0.8 mg/dL (0.15-1.2); Total Protein 6.5 g/dL (6.6-8.7)
[2024-09-16 13:58] VITALS: BP 166/81; RESP 16
[2024-09-16] MEDS: iohexol 350 mg/mL 500 mL Btl (per mL) IV (14:00)
[2024-09-16 14:15] VITALS: PULSE 52
[2024-09-16] MEDS: tranexamic acid 1,000 MG/100 ML PREMIX 600 MG IV (14:35)
[2024-09-16 15:19] VITALS: BP 165/81; PULSE 52; O2SAT 98
== END 2024-09-16 15:25 | disposition short-term general hospital (02) ==
PROVIDERS: Emergency Provider Family Medicine; PCP Family Medicine
DX: S36.039A Unspecified laceration of spleen, initial encounter (principal); V89.2XXA Person injured in unspecified motor-vehicle accident, traffic, initial encounter
CPT/HCPCS: 36415; 70450; 71260; 72125; 74177; 80053; 81001; 85025; 96374; 96375; 99285; 99291; J1885

== ENCOUNTER → 2025-01-02 08:55 | Outpatient (BNVA) | payer MEDICARE, SELFPAY | PROVIDERS: PCP Family Medicine; Visit Provider Family Medicine | DX: Z00.00 Encounter for general adult medical examination without abnormal findings (principal); G45.9 Transient cerebral ischemic attack, unspecified; I74.9 Embolism and thrombosis of unspecified artery; F32.A Depression, unspecified; R73.9 Hyperglycemia, unspecified | CPT/HCPCS: 80053; 80061; 83036; 84443; 85025 ==

== ENCOUNTER 2025-01-10 08:20 | Outpatient (CLI) | payer MEDICARE, SELFPAY ==
--- NOTE | 2025-01-10 10:00 | MM_ITS ---
WS: [id number] BILATERAL SCREENING DIGITAL TOMOSYNTHESIS MAMMOGRAM WITH CAD HISTORY: screening COMPARISON: 11/03/2023, 07/26/2011 Bilateral CC and MLO views with tomosynthesis and synthetic mammography submitted. Computer aided detection analyzed. Breast composition: There are scattered areas of fibroglandular density. No suspicious masses, microcalcifications or architectural distortion. Long-term stability well-circumscribed high density mass near 9:00 RIGHT breast. Mass measures 10 x 11 x 11 mm and is decreased in size since 2007. Stable since 11/03/2023. Bilateral breast calcifications are benign. MM/MM scr BI tomosynthesis [id number] IMPRESSION: BI-RADS: 2 - Benign. FOLLOW UP: 1 Year Follow-up
== END 2025-01-10 08:21 | disposition home or self-care (01) ==
LOC: RAD 08:21
PROVIDERS: PCP Family Medicine; Visit Provider Family Medicine
DX: Z12.31 Encounter for screening mammogram for malignant neoplasm of breast (principal)
CPT/HCPCS: 77063; 77067

== ENCOUNTER 2025-01-28 09:57 | Outpatient (CLI) | payer MEDICARE, SELFPAY ==
--- NOTE | 2025-01-28 10:00 | XR_ITS ---
WS: [id number] Exam: XR shoulder RT min 2V* [id number] Date/Time of Exam: 01/28/2025 10:01 AM Reason For Exam: shoulder pain No fracture. The joints are preserved. Normal soft tissues. XR/XR shoulder RT min 2V* [id number] IMPRESSION: 1. Negative RIGHT shoulder.
== END 2025-01-28 09:58 | disposition home or self-care (01) ==
PROVIDERS: PCP Family Medicine; Visit Provider Family Medicine
DX: M25.511 Pain in right shoulder (principal)
CPT/HCPCS: 73030